=== PATIENT | female | born 1975 | race Caucasian/White ===

== ENCOUNTER 2020-06-14 08:07 | Outpatient (REF) | payer BC, SELFPAY ==
[2020-06-14 11:59] LABS: Alanine Aminotransferase 16 U/L (0-31); Anion Gap 11 (12-20); Aspartate Amino Transferase 16 U/L (5-31); Blood Urea Nitrogen 16 mg/dL (9-16); Calcium 9.3 mg/dL (8.4-10.2); Carbon Dioxide 27 mmol/L (22-29); Chloride 108 mmol/L (96-108); Cholesterol 197 mg/dL; Estimated Glomerular Filt Rate > 60; Glucose Fasting 82 mg/dL (60-99); HDL Cholesterol 44 mg/dL; LDL Cholesterol Calculated 127 mg/dl; Potassium 4.1 mmol/L (3.3-5.1); Sodium 142 mmol/L (135-145); Triglycerides 130 mg/dL
[2020-06-14 12:07] LABS: Vitamin D 25-OH Total 25.5 ng/mL (>30)
== END 2020-06-14 08:08 | disposition home or self-care (01) ==
LOC: HO.HMGCLDS 08:07
PROVIDERS: PCP Internal Medicine; Visit Provider Internal Medicine
DX: Z00.00 Encounter for general adult medical examination without abnormal findings (principal); I10 Essential (primary) hypertension
CPT/HCPCS: 36415; 80048; 80061; 82306; 84450; 84460

== ENCOUNTER 2020-09-20 13:26 | Outpatient (REF) | payer BC, SELFPAY ==
[2020-09-20 15:11] LABS: MANUAL DIFF FLAG NO
[2020-09-20 15:17] LABS: Basophils Percent Auto 0.3 % (0-2); Eosinophils Absolute Auto 0.1 X10*3/uL (0.0-0.4); Eosinophils Percent Auto 2.1 % (0-4); Hematocrit 41.8 % (37-47); Hemoglobin 13.5 g/dl (12.0-16.0); Imm Gran Abs Auto 0.02 X10*3/uL (0.00-0.03); Imm Gran Pct Auto 0.3 % (0.0-0.4); Lymphocytes Absolute Auto 1.8 X10*3/uL (1.2-4.9); Lymphocytes Percent Auto 30.1 % (20-40); Mean Corpuscular HGB Conc 32.3 g/dl (31.0-35.0); Mean Corpuscular Hemoglobin 31.4 pg (27.0-33.0); Mean Corpuscular Volume 97.2 fL (80-98); Mean Platelet Volume 9.6 fL (9.4-12.3); Monocytes Absolute Auto 0.5 X10*3/uL (0.1-1.2); Monocytes Percent Auto 8.6 % (2-11); Neutrophils Absolute Auto 3.5 X10*3/uL (2.0-8.3); Neutrophils Percent Auto 58.6 % (45-73); Platelet Count 325 X10*3/uL (160-400); Red Cell Distribution Width 12.7 % (11.0-16.0); White Blood Count 6.1 X10*3/uL (4.8-10.8)
[2020-09-20 15:41] LABS: Alanine Aminotransferase 22 U/L (0-31); Albumin Level 4.2 g/dL (3.5-5.0); Alkaline Phosphatase 49 U/L (39-117); Anion Gap 10 (12-20); Aspartate Amino Transferase 19 U/L (5-31); Bilirubin Total 0.5 mg/dL (0.0-1.0); Blood Urea Nitrogen 21 mg/dL (9-16); C Reactive Protein 0.11 mg/dL (< or = 0.50); Calcium 9.5 mg/dL (8.4-10.2); Carbon Dioxide 29 mmol/L (22-29); Chloride 107 mmol/L (96-108); Estimated Glomerular Filt Rate > 60; Glucose Random 86 mg/dL (60-115); Potassium 4.5 mmol/L (3.3-5.1); Sodium 141 mmol/L (135-145); Total Protein 6.7 g/dL (6.5-8.0)
== END 2020-09-20 13:27 | disposition home or self-care (01) ==
LOC: HO.LAB 13:26
PROVIDERS: PCP Internal Medicine; Visit Provider Nurse Practitioner
DX: Z12.11 Encounter for screening for malignant neoplasm of colon (principal); Z80.0 Family history of malignant neoplasm of digestive organs; Z87.19 Personal history of other diseases of the digestive system
CPT/HCPCS: 36415; 80053; 85025; 86140

== ENCOUNTER 2020-11-11 07:49 | Day surgery (SDC) | payer BC, SELFPAY ==
[2020-11-07 15:04] VITALS: BMI 30.9
--- NOTE | 2020-11-11 08:30 | MHC.SHP ---
Pre-Procedural Eval Section A Date of Service: 11/11/20 The patient is an INPATIENT: No The History & Physical has been completed within 30 days and I have reviewed it.: No Section B Chief Complaint: Screening Details of Present Illness: Colon cancer screening, history of ulcerative colitis, FH of colon cancer Relevant Family History (Specify if Yes): Yes Relevant Social History: None Present Medications: see Short Stay Collaborative assessment Medical History: Significant History (Depression with anxiety History of carpal tunnel syndrome History of cholelithiasis History of COVID-19 Hx of ulcerative colitis) History of Previous Operations: Relevant previous surgery/procedure and date(s) (Hx of carpal tunnel repair Hx of cholecystectomy Hx of colonoscopy) Allergies: Allergies Allergy/AdvReac Type Severity Reaction Status Date / Time Sulfa (Sulfonamide AdvReac Hives Verified 09/20/20 13:35 Antibiotics) Review of Systems Sugical H&P ROS: Negative: Constitution, Cardiovascular, Respiratory and Gastrointestinal Exam Surgical H&P Exam: Normal: Heart, Normal: Lungs, Normal: Extremities and Normal: Abdomen Plan Diagnosis/Plan: Unchanged I have reviewed the history and physical and performed a pertinent physical examination on my patient. No changes have occurred unless specified.
--- NOTE | 2020-11-11 08:32 | W.PM.OPN ---
Operative Note Operative Note Date of Service: 11/11/20 Narrative: Pre-op diagnosis:?Colon cancer screening, history of ulcerative colitis, FH of colon cancer (3-4 2nd degree relatives on Dad's side - uncle and GM - with colon cancer in their 70's and 80's. Post-op diagnosis:?other (Diverticulosis, hemorrhoids) Procedure:? COLONOSCOPY TILL CECUM WITH BIOPSIES Consent: Indications for the procedure and potential complications of bleeding, perforation, reaction to medications and missed diagnosis were discussed with the patient and informed consent was obtained. Instrument: Olympus PCF H 190 L variable stiffness pediatric colonoscope Monitoring: Vital signs and clinical assessment, intermittent blood pressure monitoring, continuous EKG monitoring, Pulse oximetry and Carbon Dioxide monitoring were done throughout the procedure. Colon withdrawl time was 25 minutes. Procedure: The patient was placed in the left lateral decubitis position and pre-procedure medications were administered. After a digital rectal examination of the ano-rectum, the video colonoscope was inserted into the rectum and advanced through the colon to the cecum. The colonoscope was slowly withdrawn in a retrograde panoramic fashion and the colon mucosa was carefully examined including a retroflexed view of the rectum. Findings and interventions are described below. Procedure Difficulty: Without difficulty Findings: Terminal Ileum: Not evaluated Cecum:? Normal Ascending Colon:? Normal Transverse Colon:? Normal Descending Colon:? Normal Sigmoid Colon:? Moderate diverticulosis Rectum:? Normal Ano-rectum:? Small internal hemorrhoids Colon preparation: Excellent ? Impression and Post Procedure Diagnosis: Colonoscopy Findings: No polyps were detected. Surveillance biopsies were obtained from the colon for FU of UC Moderate diverticulosis seen in the sigmoid colon Small hemorrhoids on retroflexed exam. Plan: Await pathology results Patient has an appointment on 11/25/20 in the GI Clinic with? Carolyn Goldberg NP . Repeat Colonoscopy interval based on path results - If biopsies shows changes of inactive UC, repeat colon in 2 yrs and if no changes suggestive of inactive colitis then FU colon in 5 years. Above findings were reviewed with the patient and diverticulosis handout was given in the discharge area Surgeon:?Ck Rodríguez MD Anesthesia:?HAILEY (Marisol Triplett CRNA) Was an Pediatric Clinical Dietician used for this Procedure?:?Yes Pediatric Clinical Dietician:?Porsche Nunez Estimated blood loss (mL):?0 Pathology:?other (A. cecum biopsies, R/O dysplasia? B. colon biopsies at 60 cm and 70 cm, R/O dysplasia? C. colon biopsies at 50 cm and 40 cm, R/O dysplasia? D. colon biopsies at 30 cm and 20 cm, R/O dysplasia? E. colon bi) Condition:?stable Disposition:?PACU
[2020-11-11 08:34] LABS: UPreg QC Valid YES; Urine Pregnancy NEGATIVE (NEGATIVE)
[2020-11-11 08:53] VITALS: BP 114/66; PULSE 68; RESP 16; TEMP 36.6; O2SAT 100; BMI 29.0
[2020-11-11] MEDS: Lactated Ringers 1,000 ML 100 ML IVCONT (09:01)
--- NOTE | 2020-11-11 09:20 | HO.ANESPROP2 ---
HPI - Anesthesia Eval Consult details Narrative: 45 yo female patient for colonoscopy PMFSH Active Problems Active Problems: All Active Problems (Updated 11/07/20 @ 15:04 by Felipa Flores RN) Family history of colon cancer (Acute) Colon cancer screening (Acute) Fracture of phalanx of right index finger (Acute) Hx of ulcerative colitis (Acute) Depression with anxiety (Acute) Past Medical History Medical History COVID-19 vaccine series completed Depression with anxiety Fracture of phalanx of right index finger History of carpal tunnel syndrome History of cholelithiasis History of COVID-19 Hx of ulcerative colitis Family History Family History Father History of COPD Hx of congestive heart failure Hx of hyperlipidemia History of hypertension Mother Hx of acute arthritis Paternal Grandmother Alzheimer's dementia Family history of problems with anesthesia: No Surgical History Surgical History Hx of carpal tunnel repair Hx of cholecystectomy Hx of colonoscopy History of Problems with Anesthesia: No Social History Social History Alcohol intake: current Alcohol intake frequency: holidays/special occasions only Patient Tobacco Use Status: Never used Tobacco Use of substances other than those prescribed or required for medical reasons: No Are you DNR?: No Advance Directives: No Advance Directives Information Provided: Yes Patient : No (UCG negative today) Meds Allergies Allergy/AdvReac Type Severity Reaction Status Date / Time Sulfa (Sulfonamide AdvReac Hives Verified 09/20/20 13:35 Antibiotics) Active Medications: Current Medications Lactated Ringer's (Lr) 1,000 mls @ 100 mls/hr IVCONT .Q10H FRED Last Admin: 11/11/20 09:01 Dose: 100 mls/hr Documented by: Home Medications Medication Instructions Recorded Confirmed Last Taken Type calcium carbonate 600 mg (1,500 1 cap PO DAILY 06/13/20 11/07/20 Unknown History mg)-vitamin D3 500 unit capsule (Calcium 600 with Vitamin D3) escitalopram oxalate 20 mg tablet 20 mg PO QAM 06/13/20 11/11/20 11/11/20 06:30 History lorazepam 1 mg tablet 1 mg PO DAILY PRN 06/13/20 11/07/20 Unknown History multivitamin 1 tab PO DAILY 06/13/20 11/07/20 Unknown History omega-3 fatty acids 1,000 mg 1,000 mg PO DAILY 06/13/20 11/07/20 Unknown History capsule (Fish Oil Concentrate) albuterol sulfate 90 mcg/actuation 2 puff INHALATION Q4H PRN 09/20/20 Unknown History aerosol inhaler Exam Exam Date and Time: November 11, 2020 0920 Height,Weight and Vital Signs: Height 5 ft 6 in Weight 81.647 kg Last Vital Signs Temp 97.8 F 11/11/20 08:53 Pulse 68 11/11/20 08:53 Resp 16 11/11/20 08:53 BP 114/66 11/11/20 08:53 Pulse Ox 100 11/11/20 08:53 Pertinent Lab Results Pertinent Lab Results: Laboratory Tests 11/11/20 08:20 Urine Test NEGATIVE Airway Mallampati Class: I TM Dist: >3cm Neck ROM: Full Loose/Missing/Broken Teeth: No Heart: RRR Lungs: CTAB Assessment and Plan Assessment Anesthesia Assessment: Anesthesia Plan Discussed and Chart Reviewed Final Anesthetic Review Family History of Problems with Anesthesia: No History of Problems with Anesthesia: No NPO: Yes ASA Class: II Final Preanesthetic Review: No Changes in Pt Med Stat, Meds/Allgs Chart Reviewed, Consent Obtained/Reviewed and Anes Risks/Benef Reviewed Patient Risk: Low Procedure Risk: Low Assessment/Block/Sedation in SS: Assess/Block/Sedation-SS Anesthetic Plan Anesthetic Plan: MAC: Disposition: Standard PACU
[2020-11-11 10:33] VITALS: BP 101/42; PULSE 72; RESP 16; TEMP 36.1; O2SAT 99
[2020-11-11 10:48] VITALS: BP 100/56; PULSE 62; RESP 18; TEMP 36.1; O2SAT 100
== END 2020-11-11 11:10 | disposition home or self-care (01) ==
PROVIDERS: Anesthesiology; PCP Internal Medicine; Visit Provider Internal Medicine Gastroenterology
PROC: 0DJD8ZZ Inspection of Lower Intestinal Tract, Via Natural or Artificial Opening Endoscopic (ICD-10-PCS; CPT 45378; principal; 2020-11-11 09:10)
DX: Z12.11 Encounter for screening for malignant neoplasm of colon (principal); K57.30 Diverticulosis of large intestine without perforation or abscess without bleeding; K64.8 Other hemorrhoids; K63.89 Other specified diseases of intestine; Z87.19 Personal history of other diseases of the digestive system; Z80.0 Family history of malignant neoplasm of digestive organs; Z88.2 Allergy status to sulfonamides
CPT/HCPCS: 45380; 81025; 88305

== ENCOUNTER → 2020-11-25 09:15 | Outpatient (BNVA) | payer BC, SELFPAY | PROVIDERS: PCP Internal Medicine; Visit Provider Nurse Practitioner ==

== ENCOUNTER 2022-05-25 07:44 | Outpatient (REF) | payer BC, SELFPAY ==
[2022-05-25 12:35] LABS: Alanine Aminotransferase 29 U/L (0-31); Aspartate Amino Transferase 20 U/L (5-31); Cholesterol 164 mg/dL; Glucose Fasting 89 mg/dL (60-99); HDL Cholesterol 28 mg/dL; LDL Cholesterol Calculated 113 mg/dl; Triglycerides 119 mg/dL
[2022-05-25 12:42] LABS: Vitamin D 25-OH Total 37.2 ng/mL (>30)
== END 2022-05-25 07:45 | disposition home or self-care (01) ==
LOC: HO.HMGCLDS 07:44
PROVIDERS: PCP Internal Medicine; Visit Provider Internal Medicine
DX: Z00.01 Encounter for general adult medical examination with abnormal findings (principal)
CPT/HCPCS: 36415; 80061; 82306; 82947; 84450; 84460

== ENCOUNTER 2023-08-05 13:19 | Outpatient (AMB) | payer BC, SELFPAY ==
--- NOTE | 2023-08-05 13:24 | MHC.PC.OV ---
Vital Signs 08/05/23 13:34 Height 5 ft 5.5 in Weight 213 lb BMI 34.9 BP 122/70 Blood Pressure Location Rt brachial Position Sitting Pulse 85 Pulse Source Pulse Oximeter Pulse Oximetry (%) 99 Oxygen Delivery Method Room Air Intake Visit Reasons: PE Intake Note: Pt is here today for her PE: last mammogram 04/08/22, papsmear 03/19/22, colonoscopy 11/11/20 Is last menstrual period known: Yes Last menstrual period: 07/23/23 Allergies Sulfa (Sulfonamide Antibiotics) Adverse Reaction (Verified 08/05/23 13:41) Hives Medication List - Last Reconciled 08/05/23 by Cristela Holman MD calcium carbonate-vitamin D3 600 mg-12.5 mcg (500 unit) (Calcium 600 with Vitamin D3) 1 cap PO DAILY lorazepam 1 mg PO DAILY PRN multivitamin 1 tab PO DAILY omega-3 fatty acids (Fish Oil Concentrate) 1,000 mg PO DAILY venlafaxine ER 75 mg PO DAILY Tobacco use date assessed: 08/05/23 Dental Screening Dental Screen Date: 08/05/23 Did you have a dental visit in the last 12 months?: Yes Did you have a dental problem in the last 6 months where you did not have access to dental care?: No Was dental information given to patient?: Patient has dentist HPI PE HPI Details 48-year-old lady here today for physical exam. She is up-to-date with her screening mammogram due again in 10/31/2022, up-to-date with her screening colonoscopy and up-to-date with her Pap smear, goes to [facility]. She currently sees Dr. Meli Arellano for her depression and anxiety, stable and controlled on venlafaxine and takes lorazepam as needed for acute anxiety attacks.. [facility] Medical History (Updated 08/05/23 @ 14:09 by Cristela Holman MD) Sensorineural hearing loss of low frequency Erythema intertrigo Bilateral posterior neck pain Obesity (BMI 30-39.9) Hearing impairment COVID-19 vaccine series completed Fracture of phalanx of right index finger History of carpal tunnel syndrome History of cholelithiasis History of COVID-19 Hx of ulcerative colitis Depression with anxiety Surgical History History of colonoscopy Hx of colonoscopy Hx of carpal tunnel repair Hx of cholecystectomy Family History Father History of COPD Hx of congestive heart failure Hx of hyperlipidemia History of hypertension Mental health disorder Depression Mother Mental health disorder Anxiety Paternal Grandmother Alzheimer's dementia Sister Mental health disorder Anxiety Depression Social History Housing: House Alcohol intake: current Alcohol intake frequency: holidays/special occasions only Patient Tobacco Use Status: Never used Tobacco e-Cigarette/Vaping Use: Never Used Current occupational status: employed Cognitive needs: No Hearing needs: No Vision needs: Yes Female Reproductive History Menstrual Date of last menstrual period: 07/23/23 Questionnaire PHQ-9 Over the last 2 weeks, how often have you been bothered by any of the following problems? 1. Little interest or pleasure in doing things: not at all 2. Feeling down, depressed, or hopeless: not at all 3. Trouble falling or staying asleep, or sleeping too much: not at all 4. Feeling tired or having little energy: not at all 5. Poor appetite or overeating: not at all 6. Feeling bad about yourself - or that you are a failure or have let yourself or your family down: not at all 7. Trouble concentrating on things, such as reading the newspaper or watching television: not at all 8. Moving or speaking so slowly that other people could have noticed. Or the opposite - being so fidgety or restless that you have been moving around a lot more than usual: not at all 9. Thoughts that you would be better off or of hurting yourself in some way: not at all Total score: 0 Depression Screening Interpretation: Negative Depression Screening Done: Yes 75917 - PHQ-9 Billing: Yes Source: Developed by Drs. Sudheer Sarkar, Hali Stephens, Sanford Velázquez and colleagues, with an educational ute from [employer]. Thrive Questionnaire Date Thrive assessed: 08/05/23 I am a: Patient What is your living situation today?: I have a steady place to live Within the past 12 months, did the food you bought not last and you didn't have the money to get more?: Never true Within the past 12 months, did you worry whether your food would run out before you got money to buy more?: Never true Do you have trouble paying for medicines?: No Do you have trouble getting transportation to medical appointments?: No Do you have trouble paying your heating and electricity bill?: No Do you have trouble taking care of your child, family member or friend?: No Do you have trouble with day-to-day activities such as bathing, preparing meals, shopping, managing finances, etc.?: No Are you currently unemployed and looking for a job?: No Are you interested in more education?: No THRIVE Score: 0 AUDIT C Alcohol Use Questionnaire (AUDIT-C) 1. How often do you have a drink containing alcohol?: Monthly or less 2. How many drinks containing alcohol do you have on a typical day when you are drinking?: 1 or 2 3. How often do you have six or more drinks on one occasion?: Never Total Score: 1 VANNESSA-7 AMB Questionnaire VANNESSA-7 Date VANNESSA - 7 assessed: 08/05/23 Feeling nervous, anxious, or on edge: 0 = Not at all Not being able to stop or control worryin = Not at all Worrying too much about different things: 0 = Not at all Trouble relaxin = Not at all Being so restless that it is hard to sit still: 0 = Not at all Becoming easily annoyed or irritable: 0 = Not at all Feeling afraid as if something awful might happen: 0 = Not at all Total VANNESSA-7 score (0-4 normal; 5-9 mild; 10-14 moderate; 15-21 severe): 0 Source: Developed by Drs. Sudheer Sarkar, Hali Stepehns, Sanford Velázquez and colleagues, with an educational ute from [employer]. VANNESSA-7 Assessment Billing VANNESSA-7 Assessment Tool: VANNESSA-7 Assessment 81187 Review of Systems Const Denies headache(s) and Reports weight gain Eyes Details: Goes to [facility] for eye exam Reports no additional complaints ENT Denies dysphagia, Denies vertigo, Denies dizziness, Denies headache(s) and Denies mouth pain Card Reports no additional complaints Resp Reports no additional complaints GI Denies abdominal pain, Denies melena, Denies bloating, Denies hematochezia, Denies GI cramping, Denies dysphagia, Denies heartburn and Denies nausea Reports no additional complaints Musc Reports as per HPI, Denies abnormal gait and Denies numbness Skin/Breast Reports as per HPI Neuro Denies abnormal gait, Denies vertigo, Denies dizziness, Denies headache(s), Denies focal weakness and Denies numbness Psych Reports no additional complaints Endo Reports no additional complaints Greg/Lymph Denies easy bleeding and Denies easy bruising Aller/Immun Reports no additional complaints Physical exam (Primary Care) Vital Signs: Last Vital Signs Pulse 85 08/05/23 13:34 BP 122/70 08/05/23 13:34 Pulse Ox 99 08/05/23 13:34 Oxygen Delivery Method Room Air 08/05/23 13:34 BMI result Body Mass Index 34.9 Tobacco/Smoking Status: Tobacco use Status Tobacco use date assessed 08/05/23 08/05/23 13:26 Patient Tobacco Use Status Never used Tobacco 08/05/23 13:26 e-Cigarette/Vaping Use Never Used 08/05/23 13:26 PHQ-9: PHQ-9 Score PHQ-9: Total score 0 08/06/23 23:21 Depression Screening Interpretation: Negative Thrive Assessment: Date of Thrive Assessment Date Thrive assessed 08/05/23 08/05/23 13:36 Advance Care Planning discussion: Completed/Scanned Date of discussion: 08/05/23 Who was present: Patient Forms completed: Health Care Proxy Time spent: 16-45 minutes Actual minutes spent: 15 Const General: healthy appearing, comfortable and no acute distress Nutritional Appearance: obese Orientation/consciousness: patient oriented x3 HENMT Head: Yes normocephalic and Yes atraumatic Ears: external ears normal, TM's normal bilaterally and EAC's normal General nose exam: Normal external nose present Face and sinus: Yes face symmetric Mouth: Normal oral and palatal mucosa present and moist mucous membranes Eyes General: appearance normal, both eyes and all related structures Neck Other: Slight tenderness and stiffness on palpation over posterior neck and bilateral trapezius Neck: Yes full ROM, Yes no lymphadenopathy and Yes supple Thyroid: Thyroid normal Chest Chest palpation & inspection: normal inspection of the chest Breast/axilla palpation: normal palpation of the breasts Resp Effort & Inspection: normal respiratory effort and able to speak in complete sentences Auscultation: clear to auscultation bilaterally Cardio Palpation: normal PMI Rate: regular rate Rhythm: regular rhythm Heart sounds: S1 normal heart sound present and S2 normal heart sound present GI Inspection: Yes obesity Palpation (GI): Soft to palpation, nontender, no guarding and no masses Auscultation: normal bowel sounds General: Yes no CVA tenderness Back/Spine/Pelvis Back: no CVA tenderness Cervical Spine: cervical muscular tenderness (Posterior neck) Skin Other: Mild erythematous patch underneath both breasts Neuro General: patient oriented x3, moves all extremities, Normal light touch and pain sensation, no focal motor deficits, CN's II-XI intact bilaterally and normal sensation to monofilament Cranial nerves: Yes CN's II-XII intact bilaterally Cognition (Neuro): normal cognition Gait exam (Neuro): Normal gait present Psych Appearance: grossly normal and well kempt Mental Status: mental status grossly normal Speech and movement: Normal speech and movement present Affect: normal affect Attitude: cooperative Thought process: Normal thought process present Thought content: Normal thought content present Assessment and Plan Assessment & Plan (1) Sensorineural hearing loss of low frequency: Code(s): H90.5 - Unspecified sensorineural hearing loss Plan: Has hearing aids (2) Depression with anxiety: Comment: sees Dr Meli John Code(s): F41.8 - Other specified anxiety disorders Plan: Followed by psychiatry, Dr. Ming john, currently taking venlafaxine ER, and lorazepam to take as needed for acute attacks of anxiety (3) Annual visit for general adult medical examination with abnormal findings: Code(s): Z00.01 - Encounter for general adult medical examination with abnormal findings Plan: Ordered fasting labs. Recommended dental visit every 6 months and regular eye exams, at least every 2 years. Take adequate calcium in diet and vitamin-D 3 at 2000 IU per cap once a day, in addition to weight-bearing exercises to help maintain good muscle tone and weight control. Instructed to do self-breast exam, and continue with yearly mammogram. later by Pneumovax 23. Colonoscopy (4) Obesity (BMI 30-39.9): Code(s): E66.9 - Obesity, unspecified Plan: Discussed need to increase activity and weight reduction. Recommended focusing on improving health instead of dieting. Mediterranean diet is a healthy diet that helps, limit food high in fat, sugar, and calories. Eat slowly, pay attention to portion sizes, plan your meals ahead of time, continue with 0.25 mg injected subcutaneously once a week regular physical activity, at least 150 minutes of moderate intensity exercise, or 90 minutes per week of vigorous exercise. Keeping a food diary, tracking what you eat and your physical activity can help assess what improvements you can make. There are many health problems associated with being overweight/obese, so it is important to improve your diet and exercise. There are medications and surgical options available, but Lifestyle changes are the 1st step. Prescription sent for Wegovy 0.25 mg per injection injected once weekly as directed for 4 weeks, and to combined this with adhering to healthy eating habits, staying active and following recommended diet (5) Hx of ulcerative colitis: Comment: was on asacol and prednisone Code(s): Z87.19 - Personal history of other diseases of the digestive system Plan: Followed by GI, up-to-date with her screening colonoscopy which came back within normal limits Orders: Orders Vitamin D 25-OH Total 10/13/23 E66.9 - Obesity, unspecified, F41.8 - Other specified anxiety disorders, H90.5 - Unspecified sensorineural hearing loss, Z87.19 - Personal history of other diseases of the digestive system Hemoglobin A1c 10/13/23 E66.9 - Obesity, unspecified, F41.8 - Other specified anxiety disorders, H90.5 - Unspecified sensorineural hearing loss, Z87.19 - Personal history of other diseases of the digestive system Basic Metabolic Panel Fasting 10/13/23 E66.9 - Obesity, unspecified, F41.8 - Other specified anxiety disorders, H90.5 - Unspecified sensorineural hearing loss, Z87.19 - Personal history of other diseases of the digestive system Alanine Aminotransferase 10/13/23 E66.9 - Obesity, unspecified, F41.8 - Other specified anxiety disorders, H90.5 - Unspecified sensorineural hearing loss, Z87.19 - Personal history of other diseases of the digestive system Aspartate Amino Transferase 10/13/23 E66.9 - Obesity, unspecified, F41.8 - Other specified anxiety disorders, H90.5 - Unspecified sensorineural hearing loss, Z87.19 - Personal history of other diseases of the digestive system Lipid Panel 10/13/23 E66.9 - Obesity, unspecified, F41.8 - Other specified anxiety disorders, H90.5 - Unspecified sensorineural hearing loss, Z87.19 - Personal history of other diseases of the digestive system Medications: New Wegovy (semaglutide (weight loss)) administer weeks 1 through 4 of therapy 0.25 mg (0.5 mL) subcut QWEEK 30 days 2 mL 0RF NS Coding Level of Care Code Est Pt Prev Care 40-64y(62840) Diagnoses Sensorineural hearing loss of low frequency H90.5 Depression with anxiety F41.8 Annual visit for general adult medical examination with abnormal findings Z00.01 Obesity (BMI 30-39.9) E66.9 Hx of ulcerative colitis Z87.19 Additional Codes VANNESSA-7 Assessment Billing - VANNESSA-7 Assessment Tool: VANNESSA-7 Assessment [id number] ([id number]) Vital Signs *Quality* - Advance Care Planning discussion: Completed/Scanned ([id number]) Vital Signs *Quality* - Time spent: 16-45 minutes ([id number])
[2023-08-05 13:34] VITALS: BP 122/70; PULSE 85; O2SAT 99; BMI 34.9
== END 2023-08-05 14:06 | disposition home or self-care (01) ==
PROVIDERS: PCP Internal Medicine; Visit Provider Internal Medicine
DX: Z00.00 Encounter for general adult medical examination without abnormal findings (principal); H90.5 Unspecified sensorineural hearing loss; E66.9 Obesity, unspecified; Z68.34 Body mass index [BMI] 34.0-34.9, adult; F41.8 Other specified anxiety disorders; Z87.19 Personal history of other diseases of the digestive system
CPT/HCPCS: 1123F; 99396; 99497

== ENCOUNTER 2023-09-11 13:10 | Outpatient (AMB) | payer BC, SELFPAY ==
[2023-09-11 13:17] VITALS: BP 112/80; PULSE 87; O2SAT 99; BMI 35.7
--- NOTE | 2023-09-11 13:17 | A.OFFPC_ITS ---
Vital Signs 09/11/23 13:17 Height 5 ft 5.5 in Weight 218 lb BMI 35.7 BP 112/80 Blood Pressure Location Rt brachial Position Sitting Pulse 87 Pulse Source Pulse Oximeter Pulse Oximetry (%) 99 Oxygen Delivery Method Room Air Intake Visit Reasons: 4WK F/U meds Intake Note: Pt is here today for her 4wks f/u meds Allergies Sulfa (Sulfonamide Antibiotics) Adverse Reaction (Verified 09/11/23 13:32) Hives Medication List - Last Reconciled 09/11/23 by Cristela Holman MD calcium carbonate-vitamin D3 600 mg-12.5 mcg (500 unit) (Calcium 600 with Vitamin D3) 1 cap PO DAILY lorazepam 0.5 mg PO DAILY PRN multivitamin 1 tab PO DAILY omega-3 fatty acids (Fish Oil Concentrate) 1,000 mg PO DAILY venlafaxine ER 150 mg PO DAILY Wegovy (semaglutide (weight loss)) 0.25 mg (0.5 mL) subcut QWEEK 30 days NS Tobacco use date assessed: 09/11/23 Dental Screening Dental Screen Date: 09/11/23 Did you have a dental visit in the last 12 months?: Yes Did you have a dental problem in the last 6 months where you did not have access to dental care?: No Was dental information given to patient?: Patient has dentist HPI 4WK F/U meds HPI Details 48-year-old lady with obesity, here toda y for follow-up after starting Wegovy for weight loss.. She started taking it 08/31/2023, but admits to not being fully compliant with the diet and has not been exercising regularly., as she has been dealing with sudden passing of her father. Would like to see if she can continue taking the medication but would like a higher dose on this. Denies having any adverse effects . [facility] Medical History Sensorineural hearing loss of low frequency Erythema intertrigo Bilateral posterior neck pain Obesity (BMI 30-39.9) Hearing impairment COVID-19 vaccine series completed Fracture of phalanx of right index finger History of carpal tunnel syndrome History of cholelithiasis History of COVID-19 Hx of ulcerative colitis Depression with anxiety Surgical History History of colonoscopy Hx of colonoscopy Hx of carpal tunnel repair Hx of cholecystectomy Family History Father History of COPD Hx of congestive heart failure Hx of hyperlipidemia History of hypertension Mental health disorder Depression Mother Mental health disorder Anxiety Paternal Grandmother Alzheimer's dementia Sister Mental health disorder Anxiety Depression Social History Housing: House Alcohol intake: current Alcohol intake frequency: holidays/special occasions only Patient Tobacco Use Status: Never used Tobacco e-Cigarette/Vaping Use: Never Used Current occupational status: employed Cognitive needs: No Hearing needs: No Vision needs: Yes Questionnaire PHQ-9 Over the last 2 weeks, how often have you been bothered by any of the following problems? 1. Little interest or pleasure in doing things: several days 2. Feeling down, depressed, or hopeless: several days 3. Trouble falling or staying asleep, or sleeping too much: more than half the days 4. Feeling tired or having little energy: not at all 5. Poor appetite or overeating: not at all 6. Feeling bad about yourself - or that you are a failure or have let yourself or your family down: not at all 7. Trouble concentrating on things, such as reading the newspaper or watching television: not at all 8. Moving or speaking so slowly that other people could have noticed. Or the opposite - being so fidgety or restless that you have been moving around a lot more than usual: not at all 9. Thoughts that you would be better off or of hurting yourself in some way: not at all Total score: 4 Depression Screening Interpretation: Positive (Controlled on venlafaxine and takes lorazepam as needed, followed by Dr. Ming beltran) Depression Screening Follow-up: Existing condition, In treatment and Community Mental Health Worker F/U Depression Screening Done: Yes 89949 - PHQ-9 Billing: Yes Source: Developed by Drs. Sudheer Sarkar, Hali Stephens, Sanford Velázquez and colleagues, with an educational ute from [employer]. Thrive Questionnaire Date Thrive assessed: 09/11/23 I am a: Patient What is your living situation today?: I have a steady place to live Within the past 12 months, did the food you bought not last and you didn't have the money to get more?: Never true Within the past 12 months, did you worry whether your food would run out before you got money to buy more?: Never true Do you have trouble paying for medicines?: No Do you have trouble getting transportation to medical appointments?: No Do you have trouble paying your heating and electricity bill?: No Do you have trouble taking care of your child, family member or friend?: No Do you have trouble with day-to-day activities such as bathing, preparing meals, shopping, managing finances, etc.?: No Are you currently unemployed and looking for a job?: No Are you interested in more education?: No Please select the resources that you would like help with: Housing/Senior Living Currently or been in a relationship where the following occur: No concerns reported THRIVE Score: 0 AUDIT C Alcohol Use Questionnaire (AUDIT-C) 1. How often do you have a drink containing alcohol?: 2-4 times a month 2. How many drinks containing alcohol do you have on a typical day when you are drinking?: 1 or 2 3. How often do you have six or more drinks on one occasion?: Never Total Score: 2 VANNESSA-7 AMB Questionnaire VANNESSA-7 Date VANNESSA - 7 assessed: 09/11/23 Feeling nervous, anxious, or on edge: 1 = Several days Not being able to stop or control worryin = More than half the days Worrying too much about different things: 0 = Not at all Trouble relaxin = More than half the days Being so restless that it is hard to sit still: 1 = Several days Becoming easily annoyed or irritable: 0 = Not at all Feeling afraid as if something awful might happen: 0 = Not at all Total VANNESSA-7 score (0-4 normal; 5-9 mild; 10-14 moderate; 15-21 severe): 6 Source: Developed by Drs. Sudheer Sarkar, Hali Stephens, Sanford Velázquez and colleagues, with an educational ute from [employer] VANNESSA-7 Assessment Billing VANNESSA-7 Assessment Tool: VANNESSA-7 Assessment 96469 Review of Systems Const Denies headache(s) Eyes Details: Goes to [facility] for eye exam Reports no additional complaints ENT Denies dysphagia, Denies vertigo, Denies dizziness, Denies headache(s) and Denies mouth pain Card Reports no additional complaints Resp Reports no additional complaints GI Denies abdominal pain, Denies bloating, Denies hematochezia, Denies GI cramping, Denies dysphagia, Denies heartburn and Denies nausea Reports no additional complaints Neuro Denies vertigo, Denies dizziness, Denies headache(s) and Denies focal weakness Psych Reports no additional complaints Endo Reports no additional complaints Physical exam (Primary Care) Vital Signs: Last Vital Signs Pulse 87 09/11/23 13:17 BP 112/80 09/11/23 13:17 Pulse Ox 99 09/11/23 13:17 Oxygen Delivery Method Room Air 09/11/23 13:17 BMI result Body Mass Index 35.7 Tobacco/Smoking Status: Tobacco use Status Tobacco use date assessed 09/11/23 09/11/23 13:22 Patient Tobacco Use Status Never used Tobacco 09/11/23 13:22 e-Cigarette/Vaping Use Never Used 09/11/23 13:22 PHQ-9: PHQ-9 Score PHQ-9: Total score 6 09/11/23 13:41 Depression Screening Interpretation: Positive (Controlled on venlafaxine and takes lorazepam as needed, followed by Dr. Ming beltran) Depression Screening Follow-up: Existing condition, In treatment and Community Mental Health Worker F/U Thrive Assessment: Date of Thrive Assessment Date Thrive assessed 09/11/23 09/11/23 13:22 Currently or been in a relationship where the following occur: No concerns reported Const General: no acute distress Nutritional Appearance: obese Orientation/consciousness: patient oriented x3 HENMT Ears: external ears normal, TM's normal bilaterally and EAC's normal General nose exam: Normal external nose present Face and sinus: Yes face symmetric Mouth: Normal oral and palatal mucosa present and moist mucous membranes Eyes General: appearance normal, both eyes and all related structures Neck Neck: Yes full ROM, Yes no lymphadenopathy and Yes supple Thyroid: Thyroid normal Resp Effort & Inspection: normal respiratory effort and able to speak in complete sentences Auscultation: clear to auscultation bilaterally Cardio Palpation: normal PMI Rate: regular rate Rhythm: regular rhythm Heart sounds: S1 normal heart sound present and S2 normal heart sound present GI Inspection: Yes obesity Palpation (GI): Soft to palpation, nontender, no guarding and no masses Auscultation: normal bowel sounds Skin Other: Mild erythematous patch underneath both breasts Neuro General: patient oriented x3, moves all extremities, Normal light touch and pain sensation, no focal motor deficits, CN's II-XI intact bilaterally and normal sensation to monofilament Cranial nerves: Yes CN's II-XII intact bilaterally Cognition (Neuro): normal cognition Gait exam (Neuro): Normal gait present Psych Appearance: grossly normal and well kempt Mental Status: mental status grossly normal Speech and movement: Normal speech and movement present Affect: normal affect Attitude: cooperative Thought process: Normal thought process present Thought content: Normal thought content present Assessment and Plan Assessment & Plan (1) Obesity (BMI 30-39.9): Code(s): E66.9 - Obesity, unspecified Plan: Will continue on Wegovy, and dose increased to 0.5 mg injected subcutaneously once a week, reinforced importance of taking medicine as directed, cast again possible side effects of medication which may include gastroparesis, increased risk for gallstones, pancreatitis, increased risk for thyroid cancer . Patient advised again that this medicine will not wait if not following healthy diet or staying sedentary. Will see her back for follow-up in 10/2023 Medications: Changed From Wegovy (semaglutide (weight loss)) administer weeks 1 through 4 of therapy 0.25 mg (0.5 mL) subcut QWEEK 30 days 2 mL 0RF NS To semaglutide (weight loss) administer weeks 1 through 4 of therapy 0.5 mg (0.5 mL) subcut QWEEK 2 mL 1RF 30 days Coding Level of Care Code Est Pt Level 3 (91726) Diagnoses Obesity (BMI 30-39.9) E66.9 Additional Codes VANNESSA-7 Assessment Billing - VANNESSA-7 Assessment Tool: VANNESSA-7 Assessment 53800 ([id number])
== END 2023-09-11 13:39 | disposition home or self-care (01) ==
PROVIDERS: PCP Internal Medicine; Visit Provider Internal Medicine
DX: E66.9 Obesity, unspecified (principal); Z68.35 Body mass index [BMI] 35.0-35.9, adult
CPT/HCPCS: 99213

== ENCOUNTER 2023-11-05 13:39 | Outpatient (AMB) | payer BC, SELFPAY ==
--- NOTE | 2023-11-05 13:59 | A.OFFPC_ITS ---
Vital Signs 11/05/23 14:00 Height 5 ft 5.5 in Weight 223 lb BMI 36.5 BP 134/78 Blood Pressure Location Rt brachial Position Sitting Pulse 81 Pulse Source Pulse Oximeter Pulse Oximetry (%) 98 Oxygen Delivery Method Room Air Intake Visit Reasons: fup weight after med adjustment Intake Note: Pt is here today for a wgt in after med adjustement Allergies Sulfa (Sulfonamide Antibiotics) Adverse Reaction (Verified 11/05/23 14:18) Hives Medication List - Last Reconciled 11/05/23 by Cristela Holman MD lorazepam 0.5 mg PO DAILY PRN multivitamin 1 tab PO DAILY omega-3 fatty acids (Fish Oil Concentrate) 1,000 mg PO DAILY semaglutide (weight loss) 0.5 mg (0.5 mL) subcut QWEEK 30 days venlafaxine ER 150 mg PO DAILY Tobacco use date assessed: 11/05/23 Dental Screening Dental Screen Date: 11/05/23 Did you have a dental visit in the last 12 months?: Yes Did you have a dental problem in the last 6 months where you did not have access to dental care?: No Was dental information given to patient?: Patient has dentist HPI fup weight after med adjustment HPI Details 48-year-old lady here today for follow-u p with regards to her weight. She currently on we go be 0.5 mg injected once a week. She has been taking medicines as directed but admits to not really following any particular diet and has been sedentary. Denies any adverse effects from the medication, would like to see if she can go higher on the dose. She has not been losing any weight and actually gained some since last visit. [facility] Medical History Sensorineural hearing loss of low frequency Erythema intertrigo Bilateral posterior neck pain Obesity (BMI 30-39.9) Hearing impairment COVID-19 vaccine series completed Fracture of phalanx of right index finger History of carpal tunnel syndrome History of cholelithiasis History of COVID-19 Hx of ulcerative colitis Depression with anxiety Surgical History History of colonoscopy Hx of colonoscopy Hx of carpal tunnel repair Hx of cholecystectomy Family History Father History of COPD Hx of congestive heart failure Hx of hyperlipidemia History of hypertension Mental health disorder Depression Mother Mental health disorder Anxiety Paternal Grandmother Alzheimer's dementia Sister Mental health disorder Anxiety Depression Social History Housing: House Alcohol intake: current Alcohol intake frequency: holidays/special occasions only Patient Tobacco Use Status: Never used Tobacco e-Cigarette/Vaping Use: Never Used Current occupational status: employed Cognitive needs: No Hearing needs: No Vision needs: Yes Questionnaire PHQ-9 Over the last 2 weeks, how often have you been bothered by any of the following problems? 1. Little interest or pleasure in doing things: not at all 2. Feeling down, depressed, or hopeless: not at all 3. Trouble falling or staying asleep, or sleeping too much: more than half the days 4. Feeling tired or having little energy: several days 5. Poor appetite or overeating: not at all 6. Feeling bad about yourself - or that you are a failure or have let yourself or your family down: not at all 7. Trouble concentrating on things, such as reading the newspaper or watching television: not at all 8. Moving or speaking so slowly that other people could have noticed. Or the opposite - being so fidgety or restless that you have been moving around a lot more than usual: not at all 9. Thoughts that you would be better off or of hurting yourself in some way: not at all Total score: 3 Depression Screening Interpretation: Negative Depression Screening Done: Yes 45320 - PHQ-9 Billing: Yes Source: Developed by Drs. Sudheer Sarkar, Hali Stephens, Sanford Velázquez and colleagues, with an educational ute from [employer]. Thrive Questionnaire Date Thrive assessed: 11/05/23 I am a: Patient What is your living situation today?: I have a steady place to live Within the past 12 months, did the food you bought not last and you didn't have the money to get more?: Never true Within the past 12 months, did you worry whether your food would run out before you got money to buy more?: Never true Do you have trouble paying for medicines?: No Do you have trouble getting transportation to medical appointments?: No Do you have trouble paying your heating and electricity bill?: No Do you have trouble taking care of your child, family member or friend?: No Do you have trouble with day-to-day activities such as bathing, preparing meals, shopping, managing finances, etc.?: No Are you currently unemployed and looking for a job?: No Are you interested in more education?: No Please select the resources that you would like help with: None Currently or been in a relationship where the following occur: No concerns reported THRIVE Score: 0 AUDIT C Alcohol Use Questionnaire (AUDIT-C) 1. How often do you have a drink containing alcohol?: 2-4 times a month 2. How many drinks containing alcohol do you have on a typical day when you are drinking?: 1 or 2 3. How often do you have six or more drinks on one occasion?: Never Total Score: 2 VANNESSA-7 AMB Questionnaire VANNESSA-7 Date VANNESSA - 7 assessed: 11/05/23 Feeling nervous, anxious, or on edge: 0 = Not at all Not being able to stop or control worryin = Several days Worrying too much about different things: 1 = Several days Trouble relaxin = Not at all Being so restless that it is hard to sit still: 0 = Not at all Becoming easily annoyed or irritable: 0 = Not at all Feeling afraid as if something awful might happen: 0 = Not at all Total VANNESSA-7 score (0-4 normal; 5-9 mild; 10-14 moderate; 15-21 severe): 2 Source: Developed by Drs. Sudheer Sarkar, Hali tSephens, Sanford Velázquez and colleagues, with an educational ute from [employer]. VANNESSA-7 Assessment Billing VANNESSA-7 Assessment Tool: VANNESSA-7 Assessment 12558 Review of Systems Const Denies headache(s) ENT Denies dysphagia, Denies vertigo, Denies dizziness, Denies headache(s) and Denies mouth pain Card Reports no additional complaints Resp Reports no additional complaints GI Denies abdominal pain, Denies bloating, Denies hematochezia, Denies GI cramping, Denies dysphagia, Denies heartburn and Denies nausea Reports no additional complaints Musc Reports no additional complaints Neuro Denies vertigo, Denies dizziness, Denies headache(s) and Denies focal weakness Psych Reports no additional complaints Endo Reports no additional complaints Physical exam (Primary Care) Vital Signs: Last Vital Signs Pulse 81 11/05/23 14:00 BP 134/78 11/05/23 14:00 Pulse Ox 98 11/05/23 14:00 Oxygen Delivery Method Room Air 11/05/23 14:00 BMI result Body Mass Index 36.5 Tobacco/Smoking Status: Tobacco use Status Tobacco use date assessed 11/05/23 11/05/23 14:04 Patient Tobacco Use Status Never used Tobacco 11/05/23 14:04 e-Cigarette/Vaping Use Never Used 11/05/23 14:04 PHQ-9: PHQ-9 Score PHQ-9: Total score 6 11/05/23 14:26 Depression Screening Interpretation: Negative Thrive Assessment: Date of Thrive Assessment Date Thrive assessed 11/05/23 11/05/23 14:04 Currently or been in a relationship where the following occur: No concerns reported Const General: no acute distress Nutritional Appearance: obese Orientation/consciousness: patient oriented x3 Neck Neck: Yes full ROM, Yes no lymphadenopathy and Yes supple Thyroid: Thyroid normal Resp Effort & Inspection: normal respiratory effort and able to speak in complete sentences Auscultation: clear to auscultation bilaterally Cardio Palpation: normal PMI Rate: regular rate Rhythm: regular rhythm Heart sounds: S1 normal heart sound present and S2 normal heart sound present GI Inspection: Yes obesity Palpation (GI): Soft to palpation, nontender, no guarding and no masses Auscultation: normal bowel sounds Skin Other: Mild erythematous patch underneath both breasts Neuro General: patient oriented x3, moves all extremities, Normal light touch and pain sensation, no focal motor deficits, CN's II-XI intact bilaterally and normal sensation to monofilament Cranial nerves: Yes CN's II-XII intact bilaterally Cognition (Neuro): normal cognition Gait exam (Neuro): Normal gait present Psych Appearance: grossly normal and well kempt Mental Status: mental status grossly normal Speech and movement: Normal speech and movement present Affect: normal affect Attitude: cooperative Thought process: Normal thought process present Thought content: Normal thought content present Assessment and Plan Assessment & Plan (1) Obesity (BMI 30-39.9): Code(s): E66.9 - Obesity, unspecified Plan: Increase Wegovy dose to 1 mg injected once a week has directed, stressed importance of adhering to a healthy diet and getting regular exercise at least 30 minutes daily for help with weight loss. Discuss again possible side effects of the medication, which may including abdominal cramping, nausea alteration in bowel habits, increased risk for gallstones and pancreatitis. Will see her back for follow-up in 3 months after starting new dose Medications: Changed From semaglutide (weight loss) administer weeks 1 through 4 of therapy 0.5 mg (0.5 mL) subcut QWEEK 30 days 2 mL 1RF To semaglutide (weight loss) administer weeks 1 through 4 of therapy 1 mg (0.5 mL) subcut QWEEK 2 mL 3RF 30 days Coding Level of Care Code Est Pt Level 3 (41743) Diagnoses Obesity (BMI 30-39.9) E66.9 Additional Codes VANNESSA-7 Assessment Billing - VANNESSA-7 Assessment Tool: VANNESSA-7 Assessment 32074 ([id number])
[2023-11-05 14:00] VITALS: BP 134/78; PULSE 81; O2SAT 98; BMI 36.5
== END 2023-11-05 16:47 | disposition home or self-care (01) ==
PROVIDERS: PCP Internal Medicine; Visit Provider Internal Medicine
DX: E66.9 Obesity, unspecified (principal); Z68.36 Body mass index [BMI] 36.0-36.9, adult

== ENCOUNTER → 2023-11-05 13:39 | Outpatient (BNVA) | payer BC, SELFPAY | PROVIDERS: PCP Internal Medicine; Visit Provider Internal Medicine | DX: E66.9 Obesity, unspecified (principal); Z68.36 Body mass index [BMI] 36.0-36.9, adult | CPT/HCPCS: 96127 ==

== ENCOUNTER 2024-02-17 09:02 | Outpatient (AMB) | payer BC, SELFPAY ==
[2024-02-17 09:46] VITALS: BP 100/78; PULSE 77; O2SAT 96; BMI 38.0
--- NOTE | 2024-02-17 09:46 | MHC.PC.OV ---
Vital Signs 02/17/24 09:46 Height 5 ft 5.5 in Weight 232 lb BMI 38.0 BP 100/78 Blood Pressure Location Rt brachial Position Sitting Pulse 77 Pulse Source Pulse Oximeter Pulse Oximetry (%) 96 Oxygen Delivery Method Room Air Intake Visit Reasons: 3 Months F/U, Weight Loss Intake Note: Pt is here today for her 3months/ weight loss Allergies Sulfa (Sulfonamide Antibiotics) Adverse Reaction (Verified 02/17/24 10:07) Hives Medication List - Last Reconciled 02/17/24 by Cristela Holman MD lorazepam 0.5 mg PO DAILY PRN multivitamin 1 tab PO DAILY omega-3 fatty acids (Fish Oil Concentrate) 1,000 mg PO DAILY semaglutide (weight loss) 1 mg (0.5 mL) subcut QWEEK 30 days venlafaxine ER 75 mg PO DAILY Tobacco use date assessed: 02/17/24 Dental Screening Dental Screen Date: 02/17/24 Did you have a dental visit in the last 12 months?: Yes Did you have a dental problem in the last 6 months where you did not have access to dental care?: No Was dental information given to patient?: Patient has dentist HPI 3 Months F/U, Weight Loss HPI Details 48-year-old lady with obesity, here today for follow-up regarding her weight . Currently taking wegovy 1 mg once a week, but has not been able to get it consistently, there are months that she was not able to get prescription as it has been out of stock. Patient also states that she has not really been fully compliant with her diet and has not been exercising regularly over the last several months due to the holidays. Has gained 9 lb since 10/2023. Able to tolerating medication, gets occasional nausea during the day of injection which usually resolves quickly. [facility] Medical History Sensorineural hearing loss of low frequency Erythema intertrigo Bilateral posterior neck pain Obesity (BMI 30-39.9) Hearing impairment COVID-19 vaccine series completed Fracture of phalanx of right index finger History of carpal tunnel syndrome History of cholelithiasis History of COVID-19 Hx of ulcerative colitis Depression with anxiety Surgical History History of colonoscopy Hx of colonoscopy Hx of carpal tunnel repair Hx of cholecystectomy Family History Father History of COPD Hx of congestive heart failure Hx of hyperlipidemia History of hypertension Mental health disorder Depression Mother Mental health disorder Anxiety Paternal Grandmother Alzheimer's dementia Sister Mental health disorder Anxiety Depression Social History Housing: House Alcohol intake: current Alcohol intake frequency: holidays/special occasions only Patient Tobacco Use Status: Never used Tobacco e-Cigarette/Vaping Use: Never Used Current occupational status: employed Cognitive needs: No Hearing needs: No Vision needs: Yes Questionnaire PHQ-9 Over the last 2 weeks, how often have you been bothered by any of the following problems? 1. Little interest or pleasure in doing things: not at all 2. Feeling down, depressed, or hopeless: several days 3. Trouble falling or staying asleep, or sleeping too much: several days 4. Feeling tired or having little energy: several days 5. Poor appetite or overeating: not at all 6. Feeling bad about yourself - or that you are a failure or have let yourself or your family down: not at all 7. Trouble concentrating on things, such as reading the newspaper or watching television: not at all 8. Moving or speaking so slowly that other people could have noticed. Or the opposite - being so fidgety or restless that you have been moving around a lot more than usual: not at all 9. Thoughts that you would be better off or of hurting yourself in some way: not at all Total score: 3 Depression Screening Interpretation: Positive (Sees Dr. Meli beltran) Depression Screening Follow-up: Existing condition, In treatment and Community Mental Health Worker F/U Depression Screening Done: Yes Source: Developed by Drs. Sudheer Sarkar, Hali Stephens, Sanford Velázquez and colleagues, with an educational ute from [email or web address]. Thrive Questionnaire Date Thrive assessed: 02/17/24 I am a: Patient What is your living situation today?: I have a steady place to live Within the past 12 months, did the food you bought not last and you didn't have the money to get more?: Never true Within the past 12 months, did you worry whether your food would run out before you got money to buy more?: Never true Do you have trouble paying for medicines?: No Do you have trouble getting transportation to medical appointments?: No Do you have trouble paying your heating and electricity bill?: No Do you have trouble taking care of your child, family member or friend?: No Do you have trouble with day-to-day activities such as bathing, preparing meals, shopping, managing finances, etc.?: No Are you currently unemployed and looking for a job?: No Are you interested in more education?: No Please select the resources that you would like help with: None Currently or been in a relationship where the following occur: No concerns reported THRIVE Score: 0 AUDIT C Alcohol Use Questionnaire (AUDIT-C) 1. How often do you have a drink containing alcohol?: 2-4 times a month 2. How many drinks containing alcohol do you have on a typical day when you are drinking?: 1 or 2 3. How often do you have six or more drinks on one occasion?: Never Total Score: 2 VANENSSA-7 AMB Questionnaire VANNESSA-7 Date VANNESSA - 7 assessed: 02/17/24 Feeling nervous, anxious, or on edge: 1 = Several days Not being able to stop or control worryin = Not at all Worrying too much about different things: 0 = Not at all Trouble relaxin = Several days Being so restless that it is hard to sit still: 0 = Not at all Becoming easily annoyed or irritable: 0 = Not at all Feeling afraid as if something awful might happen: 0 = Not at all Total VANNESSA-7 score (0-4 normal; 5-9 mild; 10-14 moderate; 15-21 severe): 2 Source: Developed by Drs. Sudheer Sarkar, Hali Stephens, Sanford Velázquez and colleagues, with an educational ute from [email or web address]. VANNESSA-7 Assessment Billing VANNESSA-7 Assessment Tool: VANNESSA-7 Assessment 80770 Review of Systems Const Denies headache(s) ENT Denies dysphagia, Denies dizziness and Denies headache(s) Card Reports no additional complaints Resp Reports no additional complaints GI Denies abdominal pain, Denies bloating, Denies hematochezia, Denies GI cramping, Denies dysphagia, Denies heartburn and Denies nausea Reports no additional complaints Musc Reports no additional complaints Neuro Denies dizziness, Denies headache(s) and Denies focal weakness Psych Reports no additional complaints Endo Reports no additional complaints Physical exam (Primary Care) Vital Signs: Last Vital Signs Pulse 77 02/17/24 09:46 BP 100/78 02/17/24 09:46 Pulse Ox 96 02/17/24 09:46 Oxygen Delivery Method Room Air 02/17/24 09:46 BMI result Body Mass Index 38.0 Tobacco/Smoking Status: Tobacco use Status Tobacco use date assessed 02/17/24 02/17/24 09:52 Patient Tobacco Use Status Never used Tobacco 02/17/24 09:52 e-Cigarette/Vaping Use Never Used 02/17/24 09:52 PHQ-9: PHQ-9 Score PHQ-9: Total score 3 02/17/24 09:52 Depression Screening Interpretation: Positive (Sees Dr. Meli beltran) Depression Screening Follow-up: Existing condition, In treatment and Community Mental Health Worker F/U Thrive Assessment: Date of Thrive Assessment Date Thrive assessed 02/17/24 02/17/24 09:52 Currently or been in a relationship where the following occur: No concerns reported Const General: no acute distress Nutritional Appearance: obese Orientation/consciousness: patient oriented x3 Neck Neck: Yes full ROM, Yes no lymphadenopathy and Yes supple Resp Effort & Inspection: normal respiratory effort and able to speak in complete sentences Auscultation: clear to auscultation bilaterally Cardio Palpation: normal PMI Rate: regular rate Rhythm: regular rhythm Heart sounds: S1 normal heart sound present and S2 normal heart sound present GI Inspection: Yes obesity Palpation (GI): nontender, no guarding and no masses Auscultation: normal bowel sounds Neuro General: patient oriented x3, moves all extremities, Normal light touch and pain sensation, no focal motor deficits, CN's II-XI intact bilaterally and normal sensation to monofilament Cranial nerves: Yes CN's II-XII intact bilaterally Cognition (Neuro): normal cognition Gait exam (Neuro): Normal gait present Coding Level of Care Code Est Pt Level 3 (07747) Diagnoses Obesity (BMI 30-39.9) E66.9 Additional Codes VANNESSA-7 Assessment Billing - VANNESSA-7 Assessment Tool: VANNESSA-7 Assessment 95367 ([id number]) Assessment & Plan Assessment & Plan (1) Obesity (BMI 30-39.9): Code(s): E66.9 - Obesity, unspecified Category: Medical Plan: Reinforced importance of following healthy eating habits and getting regular exercise, will increase Wegovy dose to 1.7 mg once a week. And will have her see nurse navigator in 2 months to check weight Medications: New Wegovy (semaglutide (weight loss)) administer weeks 13 through 16 of therapy 1.7 mg (0.75 mL) subcut QWEEK 30 days 3 mL 2RF NS
== END 2024-02-17 11:00 | disposition home or self-care (01) ==
PROVIDERS: PCP Internal Medicine; Visit Provider Internal Medicine
DX: E66.9 Obesity, unspecified (principal); Z68.38 Body mass index [BMI] 38.0-38.9, adult

== ENCOUNTER → 2024-02-17 09:02 | Outpatient (BNVA) | payer BC, SELFPAY | PROVIDERS: PCP Internal Medicine; Visit Provider Internal Medicine | DX: E66.9 Obesity, unspecified (principal); Z68.38 Body mass index [BMI] 38.0-38.9, adult | CPT/HCPCS: 96127 ==

== ENCOUNTER 2024-04-21 07:38 | Outpatient (REF) | payer BC, SELFPAY ==
--- OUTSIDE RECORDS SUMMARY | 2024-04-21 07:41 | XMS_ITS | Encounter Summary ---
Author Organization [facility] Address [address] [place] [address] Care Team Providers Care Corporate Counselor Name Role Phone Jonnie William MD Primary Care Provider [phone] Encounter Details Date Type Department Care Team Description 01/11/2017 Subway Train Driver Report Medical Records [address] [id number] Stacy Becker MD Social History Tobacco Use Types Packs/Day Years Used Date Smoking Tobacco: Former Cigarettes 2 Q uit: 02/11/1991 Smokeless Tobacco: Never Comments:1 pk per week Alcohol Use Standard Drinks/Week Comments Yes 0 (1 standard drink = 0.6 oz pur e alcohol) 2-4 drinks per week @ most Sex Assigned at Date Recorded Not on file Job Start Date Occupation Industry Not on file Not on file Not on file documented as of this encounter Plan of Treatment Not on file documented as of this encounter Visit Diagnoses Not on filedocumented in this encounter Care Teams Corporate Counselor Relationship Specialty Start Date End Date Jonnie William MD [address] [place], [place] [phone] PCP - General Internal Medicine 05/29/11 documented as of this encounter
--- OUTSIDE RECORDS SUMMARY | 2024-04-21 07:41 | XMS_ITS | Encounter Summary ---
Author Organization [facility] Address [address] [place] [address] Care Team Providers Care Qa Analyst Name Role Phone Jonnie William MD Primary Care Provider [phone] Encounter Details Date Type Department Care Team Description 07/12/2014 Systems Admin Report Medical Records [address] [id number] Stacy Becker MD Social History Tobacco Use [...] on filedocumented in this encounter Care Teams Qa Analyst Relationship Specialty Start Date End Date Jonnie William MD [address] [place], [place] [phone] PCP - General Internal Medicine 05/29/11 documented as of this encounter
--- OUTSIDE RECORDS SUMMARY | 2024-04-21 07:42 | XMS_ITS | Encounter Summary ---
Author Organization [facility] Address [address] [place] [address] Care Team Providers Care Student Services Director Name Role Phone Jonnie William MD Primary Care Provider [phone] Encounter Details Date Type Department Care Team Description 02/10/2014 Refill General Surgery [address] [place] [address] Berenice Lucero MD Social History Tobacco Use Types Packs/Day [...] on filedocumented in this encounter Care Teams Student Services Director Relationship Specialty Start Date End Date Jonnie William MD [address] [place] [phone] PCP - General Internal Medicine 05/29/11 documented as of this encounter
--- OUTSIDE RECORDS SUMMARY | 2024-04-21 07:42 | XMS_ITS | Encounter Summary ---
Author Organization [facility] Address [address] [place] [address] Care Team Providers Care Orbitread Operator Name Role Phone Jonnie William MD Primary Care Provider [phone] Encounter Details Date Type Department Care Team Description 02/14/2017 Neuropsychology Director Report Medical Records [address] [place] [address] Placido Julien MD Social History Tobacco Use Types Packs/Day [...] on filedocumented in this encounter Care Teams Orbitread Operator Relationship Specialty Start Date End Date Jonnie William MD [address] [place], [place] [phone] PCP - General Internal Medicine 05/29/11 documented as of this encounter
--- OUTSIDE RECORDS SUMMARY | 2024-04-21 07:42 | XMS_ITS | Encounter Summary ---
Author Organization [facility] Address [address] [place] [address] Care Team Providers Care Blow Down Helper Name Role Phone Jonnie William MD Primary Care Provider [phone] Encounter Details Date Type Department Care Team Description 05/30/2020 Release of Information Medical Records [address] [id number] Abstract, Provider Social History Tobacco Use Types Packs/Day Years [...] on filedocumented in this encounter Care Teams Blow Down Helper Relationship Specialty Start Date End Date Jonnie William MD [address] [place] [address] PCP - General Internal Medicine 05/29/11 documented as of this encounter
--- OUTSIDE RECORDS SUMMARY | 2024-04-21 07:42 | XMS_ITS | Encounter Summary ---
Author Organization [facility] Address [address] [place] [address] Care Team Providers Care Typewriter Repairer Name Role Phone Jonnie William MD Primary Care Provider [phone] Encounter Details Date Type Department Care Team Description 03/08/2017 Neon Technician Report Medical Records [address] [place] [address] Placido Julien MD Social History Tobacco Use [...] on filedocumented in this encounter Care Teams Typewriter Repairer Relationship Specialty Start Date End Date Jonnie William MD [address] [place], [place] [phone] PCP - General Internal Medicine 05/29/11 documented as of this encounter
--- OUTSIDE RECORDS SUMMARY | 2024-04-21 07:42 | XMS_ITS | Encounter Summary ---
Author Organization [facility] Address [address] [place] [address] Care Team Providers Care Insurance Consultant Name Role Phone Jonnie William MD Primary Care Provider [phone] Encounter Details Date Type Department Care Team Description 02/06/2020 Button Grader Report Medical Records [address] [id number] Kayy Chopra Social History Tobacco Use Types Packs/Day Years [...] file Not on file Not on file COVID-19 Exposure Response Date Recorded In the last month, have you been in contact with someone who was confirmed or suspected to have Coronavirus / COVID-19? Yes 01/27/2020 8:50 AM EST documented as of this encounter Plan of Treatment Not on file documented as of this encounter Visit Diagnoses Not on filedocumented in this encounter Care Teams Insurance Consultant Relationship Specialty Start Date End Date Jonnie William MD [address] [place] [address] PCP - General Internal Medicine 05/29/11 documented as of this encounter
--- OUTSIDE RECORDS SUMMARY | 2024-04-21 07:42 | XMS_ITS | Encounter Summary ---
Author Organization [facility] Address [address] [place] [address] Care Team Providers Care Driver License Reviewing Officer Name Role Phone Jonnie William MD Primary Care Provider [phone] Encounter Details Date Type Department Care Team Description 03/27/2013 Otm Consultant Report Medical Records [address] [id number] Stacy Becker MD Social History Tobacco Use [...] on filedocumented in this encounter Care Teams Driver License Reviewing Officer Relationship Specialty Start Date End Date Jonnie William MD [address] [place], [place] [phone] PCP - General Internal Medicine 05/29/11 documented as of this encounter
--- OUTSIDE RECORDS SUMMARY | 2024-04-21 07:42 | XMS_ITS | Encounter Summary ---
Author Organization [facility] Address [address] [place] [address] Care Team Providers Care Bandsaw Operator Name Role Phone Jonnie William MD Primary Care Provider [phone] Reason for Visit * Reason Onset Date Comments APPOINTMENT 01/20/2013 Encounter Details Date Type Department Care Team Description 01/20/[address] [facility] [address] [place] [id number] Jonnie William MD [address] [place] [phone] APPOINTMENT Social History Tobacco Use Types Packs/Day Years [...] on file documented as of this encounter Miscellaneous Notes * Telephone Encounter - Zara Franco - 01/20/2013 4:05 PM EST Left voicemail for pt to schedule future appt with Dr William, pt last seen by him on 05-30-10 documented in this encounter Plan of Treatment Not on file documented as of this encounter Visit Diagnoses Not on filedocumented in this encounter Care Teams Bandsaw Operator Relationship Specialty Start Date End Date Jonnie William MD [address] [place] [phone] PCP - General Internal Medicine 05/29/11 documented as of this encounter
--- OUTSIDE RECORDS SUMMARY | 2024-04-21 07:42 | XMS_ITS | Encounter Summary ---
Author Organization [facility] Address [address] [place] [address] Care Team Providers Care External Relations Director Name Role Phone Tayla Daniel MD Primary Care Provider [phone] Jonnie William MD Primary Care Provider [phone] Encounter Details Date Type Department Care Team Description 09/14/2010 Hospital Medical Records [address] [place] [phone] Zuhair Samson MD [address] [place] [phone] Social History Tobacco Use Types Packs/Day Years [...] on filedocumented in this encounter Care Teams External Relations Director Relationship Specialty Start Date End Date Tayla Daniel MD [address] [place] [phone] PCP - General 12/07/07 05/28/11 Jonnie William MD [address] [place] [phone] PCP - General Internal Medicine 05/29/11 documented as of this encounter
[2024-04-21 10:43] LABS: Estimated Average Glucose 100 mg/dL; Hemoglobin A1c % 5.1 % (<6.0)
[2024-04-21 11:10] LABS: Alanine Aminotransferase 23 U/L (0-31); Anion Gap 10 (12-20); Aspartate Amino Transferase 22 U/L (5-31); Blood Urea Nitrogen 12 mg/dL (9-16); Calcium 9.2 mg/dL (8.4-10.2); Carbon Dioxide 26 mmol/L (22-29); Chloride 110 mmol/L (96-108); Cholesterol 210 mg/dL (<200); Estimated Glomerular Filt Rate > 60; Glucose Fasting 86 mg/dL (60-99); HDL Cholesterol 40 mg/dL (>40); Potassium 4.3 mmol/L (3.3-5.1); Sodium 142 mmol/L (135-145)
[2024-04-21 11:14] LABS: LDL Cholesterol Calculated 147 mg/dL (<100); Triglycerides 119 mg/dL (<150)
[2024-04-21 11:30] LABS: Vitamin D 25-OH Total 42.7 ng/mL (>30)
== END 2024-04-21 07:39 | disposition home or self-care (01) ==
LOC: HO.HMGCLDS 07:38
PROVIDERS: PCP Internal Medicine; Visit Provider Internal Medicine
DX: E66.9 Obesity, unspecified (principal); F41.8 Other specified anxiety disorders; Z87.19 Personal history of other diseases of the digestive system; H90.5 Unspecified sensorineural hearing loss; Z13.1 Encounter for screening for diabetes mellitus
CPT/HCPCS: 36415; 80048; 80061; 82306; 83036; 84450; 84460